=== PATIENT | male | born 1955 | race Two or more races ===

== ENCOUNTER 2020-02-24 09:44 | Day surgery (SDC) | payer BC ==
[2020-02-19 10:50] VITALS: BMI 25.0
[2020-02-24] MEDS ORDERED: LIDOCAINE HCL/PF 2% SDV 5ML VIAL ONE (10:25)
[2020-02-24 11:15] VITALS: TEMP 98.2
[2020-02-24 11:28] VITALS: BP 122/76; PULSE 76
== END 2020-02-24 11:41 | disposition home or self-care (01) ==
LOC: FASU-ENDO 09:44
PROVIDERS: ATTEND Internal Medicine Gastroenterology
PROC: 0DB78ZX Excision of Stomach, Pylorus, Via Natural or Artificial Opening Endoscopic, Diagnostic (ICD-10-PCS; principal; 2020-02-24 10:39)
DX: K25.9 Gastric ulcer, unspecified as acute or chronic, without hemorrhage or perforation (principal); K29.50 Unspecified chronic gastritis without bleeding; R63.4 Abnormal weight loss; K21.9 Gastro-esophageal reflux disease without esophagitis; E78.5 Hyperlipidemia, unspecified
CPT/HCPCS: 88305-TC

== ENCOUNTER 2020-06-14 18:04 | Emergency (ER) | payer BC ==
[2020-06-14 18:18] VITALS: TEMP 98.2; BMI 24.6
[2020-06-14] MEDS ORDERED: ACETAMINOPHEN/CAFFEINE/BUTALBITAL 1 TAB PO ONE (18:18)
--- NOTE | 2020-06-14 18:18 | PDOC ---
Rapid Medical Evaluation Time Seen by Provider: 06/14/20 18:15 Medical Evaluation: Allergies Allergy/AdvReac Type Severity Reaction Status Date / Time No Known Allergies Allergy Verified 02/19/20 10:30 06/14/20 18:15 65 year old male no pmhx complaining of headache x 3 days with 1 episode of vomiting on Sunday. PE: CTA RRR Benign neuro exam Plan: CT head Fiorcet Pt to precede to ED for further eval
--- OUTSIDE RECORDS SUMMARY | 2020-06-14 18:28 | XMS ---
:1955 [facility] Support Name Relationship Address Phone [facility] [place] [address] [address] [place] [address] Re-disclosure Warning The records that you are about to access may contain information from federally- assisted alcohol or drug abuse programs. If such information is present, then the following federally mandated warning applies: This information has been disclosed to you from records protected by federal confidentiality rules (42 CFR part 2). The federal rules prohibit you from making any further disclosure of this information unless further disclosure is expressly permitted by the written consent of the person to whom it pertains or as otherwise permitted by 42 CFR part 2. A general authorization for the release of medical or other information is NOT sufficient for this purpose. The Federal rules restrict any use of the information to criminally investigate or prosecute any alcohol or drug abuse patient.The records that you are about to access may contain highly sensitive health information, the redisclosure of which is protected by Article 27-F of the [facility] Public Health law. If you continue you may haveaccess to information: Regarding HIV / AIDS; Provided by facilities licensed or operated by the [facility] Office of Mental Health; or Provided by the [facility] Office for People With Developmental Disabilities. If such information is present, then the following [facility] mandated warning applies: This information has been disclosed to you from confidential records which are protected by state law. State law prohibits you from making any further disclosure of this information without the specific written consent of the person to whom it pertains, or as otherwise permitted by law. Any unauthorized further disclosure in violation of state law may result in a fine or long term sentence or both. A general authorization for the release of medical or other information is NOT sufficient authorization for further disclosure. Insurance Providers Payer name Policy type / Policy ID Covered Covered democrat's Policy Plan Coverage type democrat ID relationship to [employer] Information gusman BC POS [id number] BR [id number] Results ID Date Data Source [id number] 02/21/2020 01:22:00 PM EDT [facility] Name Value Range Interpretation Description Data Sup porting Code Source(s) Document(s ) SARS [facility] CORONAVIRUS 2 RNA This lab was ordered by CARISA jackson [facility] and reported by [facility]. Procedure
[2020-06-14] MEDS ORDERED: ACETAMINOPHEN/CAFFEINE/BUTALBITAL 1 TAB ONE (19:13)
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
[2020-06-14 21:43] VITALS: BP 158/89; PULSE 61
== END 2020-06-14 21:40 | disposition home or self-care (01) ==
LOC: JER 18:04
DX: G44.209 Tension-type headache, unspecified, not intractable (principal)
CPT/HCPCS: 70450-TC; 99284-25